=== PATIENT | female | born 1945 | race Caucasian/White ===

== ENCOUNTER → 2023-09-14 09:25 | Outpatient (REF) | payer MEDICARE, BC, SELFPAY ==
[2023-09-14 12:05] LABS: Urine Albumin Trace (Neg - Trace); Urine Bilirubin Negative (Negative); Urine Character Clear (Clear); Urine Color Yellow; Urine Glucose Negative (Negative); Urine Ketone Negative (Negative); Urine Leukocyte 2+ (Negative); Urine Nitrite Negative (Negative); Urine Occult Blood Trace (Negative); Urine Specific Gravity 1.015 (<1.030); Urine Urobilinogen Negative (Neg - 1+)
[2023-09-14 12:09] LABS: % Basophils 1.3 % (0-2); % Eosinophils 4.2 % (0-6); % Immature Granulocytes 0.3 % (0-0.5); % Lymphocytes 29.8 % (20.5-51.1); % Monocytes 9.9 % (1.7-9.3); % Neutrophils 54.5 % (42.2-75.2); Absolute Basophils 0.1 10^3/uL (0-0.2); Absolute Eosinophils 0.3 10^3/uL (0-0.7); Absolute Lymphocytes 2.1 10^3/uL (1.2-3.4); Absolute Monocytes 0.7 10^3/uL (0.1-0.6); Absolute Neutrophils 3.9 10^3/uL (1.4-6.5); Hematocrit 36.9 % (37.0-47.0); Hemoglobin 12.6 g/dL (12.0-16.0); Mean Corp Hgb Conc. 34.1 g/dL (33.0-37.0); Mean Corpuscular Hgb 31.5 pg (27.0-31.0); Mean Corpuscular Volume 92.3 fL (81.0-99.0); Mean Platelet Volume 10.9 fL (7.4-10.4); Nucleated Red Blood Cells % 0 %; Platelet Count 351 10^3/uL (130-400); Red Cell Dist. Width 13.2 % (11.5-14.5); White Blood Cell Count 7.1 10^3/uL (4.8-10.8)
[2023-09-14 12:11] LABS: ALT (SGPT) 22 U/L (0-35); AST (SGOT) 32 U/L (14-36); Albumin 3.9 g/dl (3.5-5.0); Alkaline Phosphatase 92 U/L (38-126); Blood Urea Nitrogen 13 mg/dl (7-17); Calcium 9.5 mg/dl (8.4-10.2); Carbon Dioxide 25 mmol/L (22-30); Chloride 107 mmol/L (98-107); Glucose 90 mg/dl (70-99); HDL Cholesterol 56 mg/dl; LDL Cholesterol, Calculated 85 mg/dl; Potassium 4.2 mmol/L (3.5-5.1); Sodium 140 mmol/L (135-145); Total Bilirubin 0.6 mg/dl (0.2-1.3); Total Cholesterol 155 mg/dl (50-199); Total Protein 6.8 g/dl (6.3-8.2); Triglyceride 74 mg/dl (10-149); Very Low Density Lipoprotein 14 mg/dl (0-30); eGFR > 60.00
[2023-09-14 13:16] LABS: Urine Amorphous Seen; Urine Hyaline Cast 0-2 /LPF (0-2); Urine Mucus Many; Urine Squamous Cell >30 /LPF (Few)
[2023-09-14 13:17] LABS: Urine Red Blood Cell 0-2 /HPF (0-2)
[2023-09-14 13:18] LABS: Urine White Cell 16-20 /HPF (0-5)
== END ==
LOC: HWLAB 09:25
PROVIDERS: ATTENDING PHYSICIAN Internal Medicine
DX: E78.2 Mixed hyperlipidemia (principal); I10 Essential (primary) hypertension; J31.0 Chronic rhinitis; H81.10 Benign paroxysmal vertigo, unspecified ear; Z86.19 Personal history of other infectious and parasitic diseases; M54.40 Lumbago with sciatica, unspecified side; R91.8 Other nonspecific abnormal finding of lung field; Z00.00 Encounter for general adult medical examination without abnormal findings
CPT/HCPCS: 36415; 80053; 80061; 81003; 81015; 84443; 85025

== ENCOUNTER → 2023-12-06 10:15 | Outpatient (REF) | payer MEDICARE, BC, SELFPAY | LOC: HWWDC 10:15 | PROVIDERS: ATTENDING PHYSICIAN Obstetrics & Gynecology Gynecology; FAMILY PHYSICIAN Internal Medicine | DX: Z12.31 Encounter for screening mammogram for malignant neoplasm of breast (principal) | CPT/HCPCS: 77063; 77067 ==

== ENCOUNTER 2024-04-08 11:41 | Emergency (ER) | payer MEDICARE, BC, SELFPAY ==
[2024-04-08 12:09] LABS: % Basophils 0.7 % (0-2); % Immature Granulocytes 0.3 % (0-0.5); % Lymphocytes 27.7 % (20.5-51.1); % Monocytes 14.3 % (1.7-9.3); Absolute Eosinophils 0.1 10^3/uL (0-0.7); Absolute Lymphocytes 1.7 10^3/uL (1.2-3.4); Absolute Monocytes 0.9 10^3/uL (0.1-0.6); Absolute Neutrophils 3.4 10^3/uL (1.4-6.5); Hematocrit 37.8 % (37.0-47.0); Hemoglobin 12.5 g/dL (12.0-16.0); Mean Corp Hgb Conc. 33.1 g/dL (33.0-37.0); Mean Corpuscular Hgb 30.8 pg (27.0-31.0); Mean Corpuscular Volume 93.1 fL (81.0-99.0); Nucleated Red Blood Cells % 0 %; Platelet Count 269 10^3/uL (130-400); Red Blood Cell Count 4.06 10^6/uL (4.20-5.40); Red Cell Dist. Width 13.2 % (11.5-14.5); White Blood Cell Count 6.1 10^3/uL (4.8-10.8)
[2024-04-08 12:23] LABS: ALT (SGPT) 21 U/L (0-35); AST (SGOT) 34 U/L (14-36); Alkaline Phosphatase 80 U/L (38-126); Blood Urea Nitrogen 13 mg/dl (7-17); Calcium 8.6 mg/dl (8.4-10.2); Carbon Dioxide 26 mmol/L (22-30); Chloride 105 mmol/L (98-107); Glucose 85 mg/dl (70-99); Lipase 153 U/L (23-300); Potassium 4.4 mmol/L (3.5-5.1); Sodium 139 mmol/L (135-145); Total Bilirubin 0.2 mg/dl (0.2-1.3); Total Protein 6.7 g/dl (6.3-8.2); eGFR > 60.00
[2024-04-08 12:31] LABS: Troponin I < 0.012 ng/ml
[2024-04-08 16:05] VITALS: BP 130/48
--- NOTE | 2024-04-08 17:49 | ED.GENMED ---
History of Present Illness
General
Chief Complaint: Abdominal Pain
Source: patient
Exam Limitations: none
Time Seen by Provider: 04/08/24 17:32
History of Present Illness
History of Present Illness:
79-year-old female presents complaining of pain to the left lower chest wall and upper abdomen. The pain is intermittent made worse with motion and occasionally made worse with breathing. She has been coughing quite a bit. She has been treated
for bronchitis. Currently on Zithromax. She has been moving her bowels. No urinary symptoms. No prior history of PE. She denies a rash. No other complaints at this time
Past History
Past History
ED Past Medical History: Asthma and GERD
ED Past Surgical History: and Tonsilectomy
Social History
Tobacco: Non-smoker
Alcohol: None
Drug: None
Personal:
Living: with family
Employment: Not employed
Phy Exam
Physical Exam
Physical Exam:
General: Well-appearing female no acute respiratory distress but does appear to be in some discomfort
HEENT: Normocephalic atraumatic
Heart: Regular rate and rhythm no murmurs
Lungs: Breath sounds heard in all mishra clear
Abdomen soft but slightly tender to the left upper quadrant no guarding or rebound normal bowel sounds nondistended musculoskeletal exam: Patient is tender over the anterior lateral inferior chest wall on the left side without step-off or deformity
or overlying rash
Extremities: No cyanosis
Course
Orders/Labs/Results
Orders:
Orders
04/08/24 11:42
EKG [Electrocardiogram (*1)] Urgent
Reason for Study: Abdominal Pain
EKG- Treatment ONCE
04/08/24 11:59
Complete Blood Count/With Diff Urgent
Comprehensive Metabolic Panel Urgent
Lipase Urgent
Troponin I Urgent
04/08/24 17:48
CT Pe/abd/pel W Urgent
Reason For Exam: left chest pain, cough
Ketorolac [Toradol] 15 mg IV NOW STA
04/08/24 17:52
0.9% Sodium Chloride 1000 ml [Nss] 1,000 ml IV BOLUS
04/08/24 20:37
D-Dimer Urgent
04/08/24 22:40
Apixaban [Eliquis] 5 mg PO NOW STA
Abnormal Lab Results
04/08/24 04/08/24
11:59 20:37
RBC 4.06 L 10^6/uL
(4.20-5.40)
MPV 11.0 H fL
(7.4-10.4)
Absolute Monos (auto) 0.9 H 10^3/uL
(0.1-0.6)
Monocytes % 14.3 H %
(1.7-9.3)
D-Dimer 0.77 H ug/mlFEU
(0.00-0.50)
04/08/24 11:59
04/08/24 11:59
Vital Signs
Initial and Last Documented VS:
Initial Vital Signs
Temp Pulse Resp Pulse Ox
97.9 F 71 20 99
04/08/24 11:48 04/08/24 11:48 04/08/24 11:48 04/08/24 11:48
Last Documented Vital Signs
Temp Pulse Resp BP Pulse Ox
97.9 F 68 20 132/53 96
04/08/24 11:48 04/08/24 19:51 04/08/24 18:11 04/08/24 22:00 04/08/24 22:00
MDM/Problems Addressed
Differential Diagnosis Includes:
Left chest and abdominal pain. Consider PE versus muscular strain versus hematoma versus constipation. No rash to suggest shingles. Labs reviewed through triage which are without significant finding. Will hydrate give Toradol for discomfort. CT
of chest and ab
*Critical Care Note
Total Time (30-74mins, 75-104mins- exclusive of procedures): Not Applicable
Update Note
Update Note:
CT demonstrates small mild clot burden chronic appearing clots in the left upper lobe. There is also pneumonitis noted at the bases bilaterally. CT of the abdomen showed no obvious acute finding. Patient remains nontoxic not hypoxic no
tachycardia. Cussed with emergency room attending as well as pulmonology. Pulmonology recommended D-dimer and if elevated start anticoagulants. Her D-dimer was 0.77. Given her ongoing cough and clots on the CT will start Eliquis 5 mg twice a day
and have her follow-up with pulmonology. No indication for admission. Return precautions were given. Stable for discharge
ED Attending Note
-
Portions of this chart may have been created with voice recognition software.� Occasional wrong word or��sound alike� substitutions may have occurred due to the inherent limitations of voice recognition software.
Discharge Plan
Departure
Patient Disposition: Home (Routine Discharge)
Date of Disposition: 04/08/24
Time of Disposition: 22:43
Patient with high blood pressure during this ER visit?: No
Discharge Problem:
Pulmonary embolism
Instructions: Pulmonary embolism (blood clot in the lung), How to take anticoagulants safely
Prescriptions:
New
Eliquis 5 mg tablet
5 mg PO BID Qty: 60 0RF
No Action
multivitamin [Daily Multiple] 1 EACH tablet
1 ea PO DAILY
cetirizine 10 MG tablet
10 mg PO DAILY
aspirin [Adult Aspirin Regimen] 81 MG tablet,delayed release (DR/EC)
81 mg PO DAILY
famciclovir 250 MG tablet
250 mg PO BID
montelukast 10 MG tablet
10 mg PO DAILY
vitamin B complex [Neurodep] 1 CAP capsule
1 tab PO DAILY
calcium citrate-vitamin D3 [Citracal + D Maximum] 1 EACH tablet
1 ea PO DAILY
ibuprofen 600 MG tablet
600 mg PO TIDPRN PRN (Reason: pain) Qty: 30 0RF
Referrals:
Jordan Vasquez MD [Active] -
Wally Kaiser MD [Family Provider] -
Activity Restrictions/Additional Instructions:
As discussed, there are small blood clots in your left lung. These appear to be chronic. You need to take Eliquis 5 mg twice a day. Please follow-up with beam builder helper for next available appointment. Return here for worsening symptoms otherwise
Interventions
Interventions:
*Risk Screen - Suicide Last Done: 04/08/24 11:48
*General Assessment Last Done: 04/08/24 11:48
*Neglect/Abuse Screening Last Done: 04/08/24 11:48
ED- Fall Risk Assessment Last Done: 04/08/24 19:33
*ED COVID-19 Vaccine History Last Done: 04/08/24 19:33
BL-Kmokyd-Vunpqobajt Assessment Last Done: 04/08/24 19:33
ED- Cardiac Assessment Last Done: 04/08/24 19:33
Discharge Date and Time
Print Language: AZERI
[2024-04-08] MEDS: TORADOL 15 MG IV (18:09)
[2024-04-08] MEDS: NSS 1000 IV (18:09)
[2024-04-08 18:11] VITALS: BP 90/77
[2024-04-08 19:51] VITALS: BP 121/55
[2024-04-08 21:00] VITALS: BP 124/50
[2024-04-08 22:00] VITALS: BP 132/53
[2024-04-08 22:07] LABS: D-Dimer 0.77 ug/mlFEU (0.00-0.50)
[2024-04-08] MEDS: ELIQUIS 5 MG PO (22:49)
[2024-04-08 22:54] VITALS: BP 142/64
== END 2024-04-08 23:14 | disposition home or self-care (01) ==
LOC: EMR 11:41
PROVIDERS: Emergency Medicine; Physician Assistant; EMERGENCY PHYSICIAN Emergency Medicine; FAMILY PHYSICIAN Internal Medicine
DX: I26.99 Other pulmonary embolism without acute cor pulmonale (principal); J45.909 Unspecified asthma, uncomplicated; K21.9 Gastro-esophageal reflux disease without esophagitis; Z79.2 Long term (current) use of antibiotics
CPT/HCPCS: 96374; 96361; 99284; 71275; 74177; 80053; 83690; 84484; 85025; 85379; 93005; Q9967

== ENCOUNTER → 2024-07-26 10:52 | Outpatient (REF) | payer MEDICARE, BC, SELFPAY | LOC: HWRAD 10:52 | PROVIDERS: ATTENDING PHYSICIAN Internal Medicine Critical Care Medicine; FAMILY PHYSICIAN Internal Medicine | DX: R91.8 Other nonspecific abnormal finding of lung field (principal) | CPT/HCPCS: 71250 ==

== ENCOUNTER → 2024-10-20 08:13 | Outpatient (REF) | payer MEDICARE, BC, SELFPAY ==
[2024-10-20 10:13] LABS: ALT (SGPT) 21 U/L (0-35); AST (SGOT) 27 U/L (14-36); Albumin 4.3 g/dl (3.5-5.0); Alkaline Phosphatase 76 U/L (38-126); Blood Urea Nitrogen 14 mg/dl (7-17); Calcium 9.3 mg/dl (8.4-10.2); Carbon Dioxide 26 mmol/L (22-30); Chloride 108 mmol/L (98-107); Glucose 89 mg/dl (70-99); HDL Cholesterol 57 mg/dl; LDL Cholesterol, Calculated 88 mg/dl; Potassium 5.1 mmol/L (3.5-5.1); Sodium 141 mmol/L (135-145); Total Protein 6.9 g/dl (6.3-8.2); Very Low Density Lipoprotein 14 mg/dl (0-30); eGFR > 60.00
== END ==
LOC: REG 08:13
PROVIDERS: ATTENDING PHYSICIAN Internal Medicine Cardiovascular Disease; FAMILY PHYSICIAN Internal Medicine
DX: E78.2 Mixed hyperlipidemia (principal)
CPT/HCPCS: 36415; 80053; 80061

== ENCOUNTER → 2025-01-09 13:07 | Outpatient (REF) | payer MEDICARE, BC, SELFPAY | LOC: HWWDC 13:07 | PROVIDERS: ATTENDING PHYSICIAN Obstetrics & Gynecology Gynecology; FAMILY PHYSICIAN Internal Medicine | DX: Z12.31 Encounter for screening mammogram for malignant neoplasm of breast (principal) | CPT/HCPCS: 77063; 77067 ==